=== PATIENT | female | born 1975 | race African-American/Black ===

== ENCOUNTER 2018-12-26 08:37 | Emergency (ER) | payer MEDICAID ==
[~2018-12-26] VITALS: Ht 160 cm; Wt 48.0 kg
[~2018-12-26 08:37] MED LIST: TUMS
[2018-12-26] MEDS ORDERED: IBUPROFEN 600MG TABLET PO ONE (11:15)
[2018-12-26 12:26] VITALS: BP 108/67
== END 2018-12-26 12:28 | disposition home or self-care (01) ==
LOC: ER 08:37
DX: J02.9 Acute pharyngitis, unspecified (principal); R59.1 Generalized enlarged lymph nodes
CPT/HCPCS: 81025; 87430; 99283

== ENCOUNTER 2024-02-12 08:11 | Emergency (ER) | payer OTHER, MEDICAID ==
[~2024-02-12] VITALS: Ht 175.3 cm; Wt 66.0 kg
[2024-02-12 08:17] VITALS: O2SAT 100
[2024-02-12] MEDS: SODIUM CHLORIDE 0.9% 1,000 ML IV ONE (08:59)
[2024-02-12] MEDS: ONDANSETRON HCL 4MG/2ML INJ IV STA (09:00)
[2024-02-12] MEDS: KETOROLAC 30MG/ML VIAL IV STA (09:00)
[2024-02-12 09:10] LABS: BASOPHILS % 0.4 % (0.0-2.0); EOSINOPHILS % 0.2 % (0.0-5.0); HEMATOCRIT. 40.2 % (36.0-48.0); HEMOGLOBIN. 13.6 g/dL (12.0-16.0); LYMPHOCYTES % 12.8 % (20.0-50.0); MEAN CORPUSCULAR HEMOGLOBIN 28.4 pg (28.0-32.0); MEAN CORPUSCULAR HGB CONC 33.8 g/dL (31.0-37.0); MEAN CORPUSCULAR VOLUME 83.9 fL (81.0-99.0); MEAN PLATELET VOLUME 7.7 fl (7.4-10.4); MONOCYTES % 7.4 % (2.0-8.0); NEUTROPHILS % 79.2 % (40.0-76.0); PLATELET 284 x1000/uL (130-400); RED BLOOD CELL COUNT 4.79 mill/uL (4.2-5.4); RED CELL DISTRIBUTION WIDTH 14.3 % (11.6-14.6); WHITE BLOOD COUNT 4.9 x1000/uL (4.5-11.0)
[2024-02-12 09:16] LABS: CARBON DIOXIDE 28 mEq/L (21-32); CHLORIDE 104 mEq/L (98-107); POTASSIUM 3.6 mEq/L (3.5-5.1); SODIUM 139 mEq/L (136-145)
[2024-02-12 09:19] LABS: HCG SCREEN NEGATIVE
[2024-02-12 09:21] LABS: CREATININE 0.6 mg/dL (0.6-1.0); GLUCOSE 100 mg/dL (70-105)
[2024-02-12 09:22] LABS: ETHANOL BLOOD < 10 mg/dL (<10); UREA NITROGEN BLOOD 8 mg/dL (9-23)
[2024-02-12 09:23] LABS: ALANINE AMINOTRANSFERASE 37 IU/L (10-49); ASPARTATE AMINOTRANSFERASE 36 IU/L (<34)
[2024-02-12 09:24] LABS: BILIRUBIN DIRECT 0.1 mg/dL (<=3.0); BILIRUBIN TOTAL 0.3 mg/dL (0.1-1.0); PROTEIN TOTAL 7.8 g/dL (6.0-8.3)
[2024-02-12] MEDS ORDERED: ONDA4TAB11 PO (11:16)
[2024-02-12] MEDS: ONDANSETRON HCL 4MG/2ML INJ IV ONE (11:29)
[2024-02-12] MEDS: MORPHINE SULFATE 4 MG/ML INJ (FOR IV/IM USE) IV ONE (11:35)
[2024-02-12] MEDS: ACETAMINOPHEN 325MG TABLET PO ONE (11:42)
[2024-02-12] MEDS ORDERED: IOHEXOL-300 100 ML BOTTLE ONE (11:49)
[2024-02-12 11:57] VITALS: BP 111/60; PULSE 81; RESP 15; TEMP 98.2
[2024-02-18] MEDS ORDERED: METO10TA3 MT (12:51)
== END 2024-02-12 11:55 | disposition home or self-care (01) ==
LOC: ER 09:06
DX: K52.9 Noninfective gastroenteritis and colitis, unspecified (principal); Z88.0 Allergy status to penicillin; Z98.890 Other specified postprocedural states
CPT/HCPCS: 80076; 80048; 80320; 84703; 83690; 85025; 36415; 71045; 74177; 93005; 96361; 96374; 96375; 96376; 99285; Q9967; J1885; J2405; J2270; J7030; Z7610 ×2; G0480